=== PATIENT | female | born 1970 | race Caucasian/White ===

== ENCOUNTER 2021-01-22 12:23 | Inpatient (IN) ==
[2021-01-22] MEDS ORDERED: 0.9 % Sodium Chloride 1,000 ML IVC ONE ×2 (14:31→16:56)
[2021-01-22 14:53] LABS: Basophils % 0.3 %; Eosinophils # 0.3 K/mcL (0.0-0.6); Eosinophils % 2.3 %; Hematocrit 30.4 % (35.3-44.9); Hemoglobin 10.3 g/dL (11.5-15.4); Immature Granulocytes % 0.8 % (0-4); Lymphocytes # 1.4 K/mcL (0.6-4.6); Mean Corpuscular HGB Conc 33.9 g/dL (31.6-35.5); Mean Corpuscular Volume 94.4 fL (83.0-100.0); Mean Platelet Volume 9.5 fL (9.4-12.4); Monocytes # 0.6 K/mcL (0.0-1.3); Monocytes % 4.4 %; Neutrophils # 10.4 K/mcL (1.6-8.9); Platelet Count 296 K/mcL (140-400); Red Blood Count 3.22 M/mcL (3.82-4.97); Red Cell Distribution Width 12.8 % (11.5-14.5); Segmented Neutrophils % 81.2 %; White Blood Count 12.9 K/mcL (4.3-11.1)
[2021-01-22 15:13] LABS: BUN/Creatinine Ratio 24 (6-26); Blood Urea Nitrogen 19 mg/dL (6-20); Calcium 9.1 mg/dL (8.6-10.3); Carbon Dioxide 27 mEq/L (23-29); Chloride 106 mEq/L (98-107); Glucose 90 mg/dL (70-105); Osmolality,Calculated 290 (280-300); Potassium 3.5 mEq/L (3.5-5.1); Sodium 139 mEq/L (136-145); Troponin I < 0.03 ng/mL (< 0.04); eGFR For African Americans > 60 (> 60); eGFR For Non-African Americans > 60 (> 60)
[2021-01-22] MEDS ORDERED: Azithromycin 500 MG in 0.9 % Sodium Chloride 250 ML IVPB ONE (15:17)
[2021-01-22] MEDS ORDERED: cefTRIAXone 1,000 MG in 0.9 % Sodium Chloride Mini Bag 100 ML IVPB ONE (15:17)
[2021-01-22] MEDS ORDERED: Melatonin 3 MG TABLET PO PRN (15:32)
[2021-01-22] MEDS ORDERED: Ondansetron 4 MG/2 ML VIAL IVP PRN (15:32)
[2021-01-22] MEDS ORDERED: *HR* HYDROcodone/Acet 5/325 mg TABLET PO PRN (15:32)
[2021-01-22] MEDS ORDERED: Acetaminophen 325 MG TABLET PO PRN (15:32)
[2021-01-22] MEDS ORDERED: Naloxone 0.4 MG/ML INJ IVP PRN (15:32)
[2021-01-22] MEDS ORDERED: Ipratropium/Albuterol Neb 3 ML IH PRN (15:35)
[2021-01-22] MEDS ORDERED: Perflutren Lipid Microsphere 1.3 ML in 0.9 % Sodium Chloride 8.7 ML IVP PRN (15:35)
[2021-01-22 15:43] LABS: Bilirubin,Urine Negative (Negative); Blood,Urine Negative (Negative); Clarity,Urine Clear (Clear); Color,Urine Light-Yellow (Yellow); Glucose,Urine (UA) Normal (Normal); Ketones,Urine Negative (Negative); Leukocyte Esterase,Urine Negative (Negative); Nitrite,Urine Negative (Negative); PH,Urine 6.5 pH Units (5.0-8.0); Protein,Urine 30 mg/dL (Neg-Trace); RBC,Urine 0-3 per hpf (0-3); Specific Gravity,Urine 1.014 (1.010-1.025); Squamous Epithelial Cell,Urine Few per hpf (None-Few); Urobilinogen,Urine Normal (Normal); WBC,Urine 0-3 per hpf (0-3)
[2021-01-22] MEDS ORDERED: Chloraseptic Spray 177 ML BOTTLE MM PRN (16:36)
[2021-01-22 17:29] LABS: Prothrombin Time 11.8 Seconds (9.4-12.1)
[2021-01-22 17:32] LABS: Adenovirus Not Detected (Not Detect); Coronavirus 229E Not Detected (Not Detect); Coronavirus HKU1 Not Detected (Not Detect); Coronavirus NL63 Not Detected (Not Detect); Coronavirus OC43 Not Detected (Not Detect); Human Metapneumovirus Not Detected (Not Detect); Human Rhinovirus/Enterovirus Not Detected (Not Detect); Influenza A Subtype 2009 H1 Not Detected (Not Detect); SARS-CoV-2 Not Detected (Not Detect)
[2021-01-22 17:33] LABS: Bordetella Pertussis Not Detected (Not Detect); Chlamydophila pneumoniae Not Detected (Not Detect); Influenza B Not Detected (Not Detect); Mycoplasma pneumoniae Not Detected (Not Detect); Parainfluenza Virus 1 Not Detected (Not Detect); Parainfluenza Virus 2 Not Detected (Not Detect); Parainfluenza Virus 3 Not Detected (Not Detect); Parainfluenza Virus 4 Not Detected (Not Detect); Respiratory Syncytial Virus Not Detected (Not Detect)
[2021-01-22 17:37] LABS: Amphetamine Screen,Urine Negative ng/mL (Cutoff=1000); Barbiturate Screen,Urine Negative ng/mL (Cutoff=200); Benzodiazepines Screen,Urine Negative ng/mL (Cutoff=200); Cannabinoid Screen,Urine Negative ng/mL (Cutoff = 50); Cocaine Screen,Urine Negative ng/mL (Cutoff= 300); Opiate Screen,Urine Negative ng/mL (Cutoff=300); Phencyclidine Screen,Urine Negative ng/mL (Cutoff=25)
[2021-01-22 17:49] LABS: Acetaminophen < 10 mcg/mL (10-20); Ethanol < 10 mg/dL (Less than 10); Salicylate < 2.5 mg/dL (15.0-30.0); Troponin I 0.03 ng/mL (< 0.04)
[2021-01-22] MEDS ORDERED: Isovue-370 500 ML BOTTLE IVP ONE (20:46)
[2021-01-22] MEDS: Ringers Solution, Lactated 1,000 ML IVC SCH (20:58)
[2021-01-22] MEDS: Lactobacillus 1 EACH CAP.SPRINK PO SCH (20:58)
[2021-01-22] MEDS: Chlorhexidine Rinse 15 ML MOUTHWASH MM SCH (20:58)
[2021-01-22] MEDS: Ipratropium/Albuterol Neb 3 ML IH SCH (22:16)
[2021-01-22] MEDS: BuPROPion SR (12 HR) 100 MG TABLET PO SCH (22:47)
[2021-01-22] MEDS: Celecoxib 100 MG CAPSULE PO SCH (22:47)
[2021-01-22] MEDS: hydrOXYzine pamoate 25 MG CAPSULE PO SCH (22:48)
[2021-01-22] MEDS: clonazePAM 1 MG TABLET PO SCH (22:48)
[2021-01-23] MEDS: Acetaminophen 325 MG TABLET PO PRN ×2 (02:20→20:44)
[2021-01-23] MEDS: Ipratropium/Albuterol Neb 3 ML IH SCH ×4 (03:40→22:00)
[2021-01-23 05:04] LABS: Basophils % 0.2 %; Eosinophils # 0.3 K/mcL (0.0-0.6); Eosinophils % 2.3 %; Hematocrit 28.2 % (35.3-44.9); Hemoglobin 9.5 g/dL (11.5-15.4); Immature Granulocytes % 0.5 % (0-4); Lymphocytes # 1.5 K/mcL (0.6-4.6); Lymphocytes % 11.2 %; Mean Corpuscular HGB Conc 33.7 g/dL (31.6-35.5); Mean Corpuscular Hemoglobin 31.4 pg (28.0-33.3); Mean Corpuscular Volume 93.1 fL (83.0-100.0); Mean Platelet Volume 9.9 fL (9.4-12.4); Monocytes # 0.7 K/mcL (0.0-1.3); Monocytes % 5.1 %; Neutrophils # 10.6 K/mcL (1.6-8.9); Platelet Count 323 K/mcL (140-400); Red Blood Count 3.03 M/mcL (3.82-4.97); Segmented Neutrophils % 80.7 %; White Blood Count 13.1 K/mcL (4.3-11.1)
[2021-01-23 05:25] LABS: Alanine Aminotransferase 10 Units/L (7-52); Albumin 2.8 g/dL (3.5-5.7); Albumin/Globulin Ratio 1.1 (1.1-2.2); Alkaline Phosphatase 85 Units/L (34-104); Aspartate Amino Transferase 11 Units/L (13-39); BUN/Creatinine Ratio 18 (6-26); Bilirubin,Total 0.2 mg/dL (0.3-1.0); Blood Urea Nitrogen 14 mg/dL (6-20); Calcium 8.2 mg/dL (8.6-10.3); Carbon Dioxide 23 mEq/L (23-29); Chloride 110 mEq/L (98-107); Chol/HDL Ratio 4.9 (0-4.9); Cholesterol 137 mg/dL (< 200); Globulin 2.5 g/dL (2.4-3.5); Glucose 116 mg/dL (70-105); HDL Cholesterol 28 mg/dL (40-59); LDL Cholesterol,Calculated 81 mg/dL (< 100); Magnesium 1.5 mg/dL (1.6-2.6); Osmolality,Calculated 291 (280-300); Phosphorous 2.9 mg/dL (2.7-4.5); Potassium 3.6 mEq/L (3.5-5.1); Sodium 140 mEq/L (136-145); Total Protein 5.3 g/dL (6.4-8.9); Triglycerides 141 mg/dL (< 150); eGFR For African Americans > 60 (> 60); eGFR For Non-African Americans > 60 (> 60)
[2021-01-23 05:47] LABS: Folate 6.8 ng/mL (3.0-16.0)
[2021-01-23 05:58] LABS: Ferritin 210 ng/mL (10-120); Iron < 10 mcg/dL (50-170)
[2021-01-23] MEDS ORDERED: Iron Sucrose Complex 400 MG in 0.9 % Sodium Chloride 250 ML IVPB ONE (07:27)
[2021-01-23] MEDS: Lactobacillus 1 EACH CAP.SPRINK PO SCH ×2 (08:40→20:45)
[2021-01-23] MEDS: BuPROPion SR (12 HR) 100 MG TABLET PO SCH ×2 (08:41→20:44)
[2021-01-23] MEDS: clonazePAM 1 MG TABLET PO SCH ×3 (08:41→20:45)
[2021-01-23] MEDS: Celecoxib 100 MG CAPSULE PO SCH (08:41)
[2021-01-23] MEDS: hydrOXYzine pamoate 25 MG CAPSULE PO SCH ×2 (08:41→20:45)
[2021-01-23] MEDS: Chlorhexidine Rinse 15 ML MOUTHWASH MM SCH ×2 (08:41→20:46)
[2021-01-23] MEDS: Multivit/Ca/Min/Fe/FA 1 TAB TABLET PO SCH (08:41)
[2021-01-23] MEDS: Calcium Gluconate 1gm/50mL 1 GM/50 ML BAG IVPB SCH ×2 (08:46→10:15)
[2021-01-23] MEDS ORDERED: Multivit/Ca/Min/Fe/FA 1 TAB TABLET PO SCH (09:00)
[2021-01-23] MEDS ORDERED: Azithromycin 250 MG TABLET PO SCH (09:00)
[2021-01-23] MEDS: cefTRIAXone 1,000 MG in 0.9 % Sodium Chloride Mini Bag 100 ML IVPB SCH (09:06)
[2021-01-23] MEDS: Doxycycline 100 MG CAPSULE PO SCH ×2 (10:16→20:45)
[2021-01-23 12:11] LABS: Transferrin 168 mg/dL (203-362)
[2021-01-23] MEDS ORDERED: Ondansetron ODT 4 MG TAB.RAPDIS SL PRN (14:21)
[2021-01-23 16:21] LABS: Acinetobacter baumannii by PCR Not Detected (Not Detect); Candida albicans by PCR Not Detected (Not Detect); Candida glabrata by PCR Not Detected (Not Detect); Candida krusei by PCR Not Detected (Not Detect); Candida parapsilosis by PCR Not Detected (Not Detect); Candida tropicalis by PCR Not Detected (Not Detect); Enterobacter cloacae Cmplx PCR Not Detected (Not Detect); Enterobacteriaceae by PCR Not Detected (Not Detect); Enterococcus by PCR Not Detected (Not Detect); Escherichia coli by PCR Not Detected (Not Detect); Klebsiella oxytoca by PCR Not Detected (Not Detect); Klebsiella pneumoniae by PCR Not Detected (Not Detect); Proteus by PCR Not Detected (Not Detect); Pseudomonas aeruginosa by PCR Not Detected (Not Detect); Serratia marcescens by PCR Not Detected (Not Detect); Staphylococcus aureus by PCR DETECTED (Not Detect); Streptococcus agalactiae(B)PCR Not Detected (Not Detect); Streptococcus by PCR Not Detected (Not Detect); Streptococcus pneumoniae PCR Not Detected (Not Detect); Streptococcus pyogenes (A) PCR Not Detected (Not Detect); mecA Methicillin-Resist Gene DETECTED (Not Detect)
[2021-01-23] MEDS ORDERED: Vancomycin 1,500 MG/265 ML IV.SOLN IVPB SCH (17:00)
[2021-01-23] MEDS: *HR* Enoxaparin 40 MG/0.4 ML SYRINGE SQ SCH ×2 (18:21→18:35)
[2021-01-23] MEDS: lamoTRIgine 100 MG TABLET PO SCH (20:45)
[2021-01-23] MEDS: Ringers Solution, Lactated 1,000 ML IVC SCH (20:46)
[2021-01-23] MEDS ORDERED: Ketorolac 15 MG/ML VIAL IVP ONE (21:02)
[2021-01-24 03:25] LABS: Basophils % 0.3 %; Eosinophils # 0.4 K/mcL (0.0-0.6); Eosinophils % 3.9 %; Hematocrit 26.7 % (35.3-44.9); Hemoglobin 9.3 g/dL (11.5-15.4); Lymphocytes # 1.3 K/mcL (0.6-4.6); Lymphocytes % 12.3 %; Mean Corpuscular HGB Conc 34.8 g/dL (31.6-35.5); Mean Corpuscular Hemoglobin 32.2 pg (28.0-33.3); Mean Corpuscular Volume 92.4 fL (83.0-100.0); Mean Platelet Volume 9.5 fL (9.4-12.4); Monocytes # 0.6 K/mcL (0.0-1.3); Monocytes % 5.3 %; Neutrophils # 8.3 K/mcL (1.6-8.9); Platelet Count 332 K/mcL (140-400); Red Blood Count 2.89 M/mcL (3.82-4.97); Segmented Neutrophils % 77.2 %; White Blood Count 10.8 K/mcL (4.3-11.1)
[2021-01-24 03:43] LABS: Alanine Aminotransferase 12 Units/L (7-52); Albumin/Globulin Ratio 1.2 (1.1-2.2); Alkaline Phosphatase 88 Units/L (34-104); Aspartate Amino Transferase 13 Units/L (13-39); BUN/Creatinine Ratio 15 (6-26); Bilirubin,Total 0.3 mg/dL (0.3-1.0); Blood Urea Nitrogen 13 mg/dL (6-20); Calcium 8.5 mg/dL (8.6-10.3); Carbon Dioxide 28 mEq/L (23-29); Chloride 106 mEq/L (98-107); Globulin 2.5 g/dL (2.4-3.5); Glucose 93 mg/dL (70-105); Magnesium 1.9 mg/dL (1.6-2.6); Osmolality,Calculated 290 (280-300); Phosphorous 4.2 mg/dL (2.7-4.5); Potassium 3.3 mEq/L (3.5-5.1); Sodium 140 mEq/L (136-145); Total Protein 5.5 g/dL (6.4-8.9); eGFR For African Americans > 60 (> 60); eGFR For Non-African Americans > 60 (> 60)
[2021-01-24] MEDS: Ipratropium/Albuterol Neb 3 ML IH SCH ×4 (04:07→21:45)
[2021-01-24] MEDS: *HR* Enoxaparin 40 MG/0.4 ML SYRINGE SQ SCH (05:40)
[2021-01-24] MEDS: Chlorhexidine Rinse 15 ML MOUTHWASH MM SCH ×2 (07:58→21:28)
[2021-01-24] MEDS: BuPROPion SR (12 HR) 100 MG TABLET PO SCH ×2 (07:58→21:28)
[2021-01-24] MEDS: Cholecalciferol (D-3) 1,000 UNIT (25MCG) TABLET PO SCH (07:59)
[2021-01-24] MEDS: Lactobacillus 1 EACH CAP.SPRINK PO SCH ×2 (07:59→21:27)
[2021-01-24] MEDS: Doxycycline 100 MG CAPSULE PO SCH (07:59)
[2021-01-24] MEDS: Multivit/Ca/Min/Fe/FA 1 TAB TABLET PO SCH (07:59)
[2021-01-24] MEDS: cefTRIAXone 1,000 MG in 0.9 % Sodium Chloride Mini Bag 100 ML IVPB SCH (08:00)
[2021-01-24] MEDS: clonazePAM 1 MG TABLET PO SCH ×3 (08:04→21:28)
[2021-01-24] MEDS: hydrOXYzine pamoate 25 MG CAPSULE PO SCH ×2 (08:05→21:27)
[2021-01-24] MEDS: Fluticasone Propionate Nasal 50 MCG/SPRAY BOTTLE NS SCH (08:27)
[2021-01-24] MEDS: lamoTRIgine 100 MG TABLET PO SCH ×2 (08:28→21:26)
[2021-01-24] MEDS ORDERED: (Vortioxetine Hydrobromide [Trintellix] 10 MG Tablet) PO SCH (09:00)
[2021-01-24] MEDS: Calcium Gluconate 1gm/50mL 1 GM/50 ML BAG IVPB SCH ×2 (09:14→10:00)
[2021-01-24] MEDS: Acetaminophen 325 MG TABLET PO PRN (09:35)
[2021-01-24] MEDS: (Brexpiprazole [Rexulti] 0.5 MG Tablet) PO SCH (19:29)
[2021-01-25] MEDS: Acetaminophen 325 MG TABLET PO PRN (00:47)
[2021-01-25 02:40] LABS: Basophils # 0.1 K/mcL (0.0-0.2); Basophils % 0.4 %; Eosinophils # 0.3 K/mcL (0.0-0.6); Eosinophils % 2.8 %; Hematocrit 27.4 % (35.3-44.9); Hemoglobin 9.4 g/dL (11.5-15.4); Immature Granulocytes % 1.7 % (0-4); Lymphocytes # 1.2 K/mcL (0.6-4.6); Lymphocytes % 10.7 %; Mean Corpuscular HGB Conc 34.3 g/dL (31.6-35.5); Mean Corpuscular Hemoglobin 31.6 pg (28.0-33.3); Mean Corpuscular Volume 92.3 fL (83.0-100.0); Mean Platelet Volume 9.3 fL (9.4-12.4); Monocytes # 1.2 K/mcL (0.0-1.3); Monocytes % 10.1 %; Neutrophils # 8.6 K/mcL (1.6-8.9); Nucleated Red Blood Cells 0.3 /100 WBC (0); Platelet Count 344 K/mcL (140-400); Red Blood Count 2.97 M/mcL (3.82-4.97); Red Cell Distribution Width 13.2 % (11.5-14.5); Segmented Neutrophils % 74.3 %; White Blood Count 11.6 K/mcL (4.3-11.1)
[2021-01-25 03:02] LABS: Alanine Aminotransferase 13 Units/L (7-52); Albumin 3.1 g/dL (3.5-5.7); Albumin/Globulin Ratio 1.1 (1.1-2.2); Alkaline Phosphatase 87 Units/L (34-104); Aspartate Amino Transferase 13 Units/L (13-39); BUN/Creatinine Ratio 14 (6-26); Bilirubin,Total 0.3 mg/dL (0.3-1.0); Blood Urea Nitrogen 12 mg/dL (6-20); Calcium 8.7 mg/dL (8.6-10.3); Carbon Dioxide 27 mEq/L (23-29); Chloride 105 mEq/L (98-107); Globulin 2.7 g/dL (2.4-3.5); Glucose 108 mg/dL (70-105); Magnesium 1.6 mg/dL (1.6-2.6); Osmolality,Calculated 288 (280-300); Phosphorous 3.2 mg/dL (2.7-4.5); Sodium 139 mEq/L (136-145); Total Protein 5.8 g/dL (6.4-8.9); eGFR For African Americans > 60 (> 60); eGFR For Non-African Americans > 60 (> 60)
[2021-01-25] MEDS: Ipratropium/Albuterol Neb 3 ML IH SCH ×4 (03:49→22:24)
[2021-01-25] MEDS: *HR* Enoxaparin 40 MG/0.4 ML SYRINGE SQ SCH (05:43)
[2021-01-25] MEDS: Chlorhexidine Rinse 15 ML MOUTHWASH MM SCH ×2 (08:18→20:51)
[2021-01-25] MEDS: lamoTRIgine 100 MG TABLET PO SCH ×2 (08:19→20:51)
[2021-01-25] MEDS: clonazePAM 1 MG TABLET PO SCH ×3 (08:19→20:51)
[2021-01-25] MEDS: Cholecalciferol (D-3) 1,000 UNIT (25MCG) TABLET PO SCH (08:19)
[2021-01-25] MEDS: Multivit/Ca/Min/Fe/FA 1 TAB TABLET PO SCH (08:19)
[2021-01-25] MEDS: BuPROPion SR (12 HR) 100 MG TABLET PO SCH ×2 (08:20→20:51)
[2021-01-25] MEDS: hydrOXYzine pamoate 25 MG CAPSULE PO SCH ×2 (08:20→20:51)
[2021-01-25] MEDS: (Brexpiprazole [Rexulti] 0.5 MG Tablet) PO SCH (08:21)
[2021-01-25] MEDS: Lactobacillus 1 EACH CAP.SPRINK PO SCH ×2 (08:24→20:51)
[2021-01-25] MEDS: Fluticasone Propionate Nasal 50 MCG/SPRAY BOTTLE NS SCH (09:43)
[2021-01-25] MEDS: cefTRIAXone 1,000 MG in 0.9 % Sodium Chloride Mini Bag 100 ML IVPB SCH (12:39)
[2021-01-25] MEDS: TRINTELLIX 10 MG PO SCH (20:50)
[2021-01-26 02:37] LABS: Basophils # 0.1 K/mcL (0.0-0.2); Basophils % 0.7 %; Eosinophils # 0.5 K/mcL (0.0-0.6); Eosinophils % 4.9 %; Hematocrit 31.6 % (35.3-44.9); Hemoglobin 10.3 g/dL (11.5-15.4); Immature Granulocytes % 1.8 % (0-4); Lymphocytes # 1.9 K/mcL (0.6-4.6); Lymphocytes % 18.1 %; Mean Corpuscular HGB Conc 32.6 g/dL (31.6-35.5); Mean Corpuscular Volume 95.2 fL (83.0-100.0); Mean Platelet Volume 9.2 fL (9.4-12.4); Monocytes % 9.1 %; Nucleated Red Blood Cells 0.6 /100 WBC (0); Platelet Count 399 K/mcL (140-400); Red Blood Count 3.32 M/mcL (3.82-4.97); Red Cell Distribution Width 13.3 % (11.5-14.5); Segmented Neutrophils % 65.4 %; White Blood Count 10.7 K/mcL (4.3-11.1)
[2021-01-26 03:00] LABS: Alanine Aminotransferase 12 Units/L (7-52); Albumin 3.3 g/dL (3.5-5.7); Albumin/Globulin Ratio 1.2 (1.1-2.2); Alkaline Phosphatase 94 Units/L (34-104); Aspartate Amino Transferase 14 Units/L (13-39); BUN/Creatinine Ratio 15 (6-26); Bilirubin,Total 0.2 mg/dL (0.3-1.0); Blood Urea Nitrogen 13 mg/dL (6-20); Calcium 8.5 mg/dL (8.6-10.3); Carbon Dioxide 27 mEq/L (23-29); Chloride 105 mEq/L (98-107); Globulin 2.8 g/dL (2.4-3.5); Glucose 100 mg/dL (70-105); Magnesium 2.1 mg/dL (1.6-2.6); Osmolality,Calculated 290 (280-300); Phosphorous 3.6 mg/dL (2.7-4.5); Potassium 3.8 mEq/L (3.5-5.1); Sodium 140 mEq/L (136-145); Total Protein 6.1 g/dL (6.4-8.9); eGFR For African Americans > 60 (> 60); eGFR For Non-African Americans > 60 (> 60)
[2021-01-26] MEDS: Ipratropium/Albuterol Neb 3 ML IH SCH ×4 (04:13→23:09)
[2021-01-26] MEDS: *HR* Enoxaparin 40 MG/0.4 ML SYRINGE SQ SCH (05:53)
[2021-01-26] MEDS: Multivit/Ca/Min/Fe/FA 1 TAB TABLET PO SCH (09:25)
[2021-01-26] MEDS: BuPROPion SR (12 HR) 100 MG TABLET PO SCH ×2 (09:25→21:42)
[2021-01-26] MEDS: hydrOXYzine pamoate 25 MG CAPSULE PO SCH ×2 (09:26→21:42)
[2021-01-26] MEDS: Cholecalciferol (D-3) 1,000 UNIT (25MCG) TABLET PO SCH (09:26)
[2021-01-26] MEDS: Lactobacillus 1 EACH CAP.SPRINK PO SCH ×2 (09:26→21:41)
[2021-01-26] MEDS: lamoTRIgine 100 MG TABLET PO SCH ×2 (09:26→21:42)
[2021-01-26] MEDS: Chlorhexidine Rinse 15 ML MOUTHWASH MM SCH ×2 (09:27→21:41)
[2021-01-26] MEDS: cefTRIAXone 1,000 MG in 0.9 % Sodium Chloride Mini Bag 100 ML IVPB SCH (09:27)
[2021-01-26] MEDS: Fluticasone Propionate Nasal 50 MCG/SPRAY BOTTLE NS SCH (09:30)
[2021-01-26] MEDS: clonazePAM 1 MG TABLET PO SCH ×3 (09:30→21:41)
[2021-01-26] MEDS: (Brexpiprazole [Rexulti] 0.5 MG Tablet) PO SCH (09:30)
[2021-01-26] MEDS: Calcium Gluconate 1gm/50mL 1 GM/50 ML BAG IVPB SCH ×2 (10:28→11:07)
[2021-01-26] MEDS: Vancomycin 1,250 MG/262.5 ML IV.SOLN IVPB SCH (21:49)
[2021-01-26] MEDS: TRINTELLIX 10 MG PO SCH (22:23)
[2021-01-27] MEDS: Ipratropium/Albuterol Neb 3 ML IH SCH ×4 (03:52→22:27)
[2021-01-27] MEDS: *HR* Enoxaparin 40 MG/0.4 ML SYRINGE SQ SCH (04:50)
[2021-01-27 04:55] LABS: Basophils # 0.1 K/mcL (0.0-0.2); Basophils % 0.6 %; Eosinophils # 0.5 K/mcL (0.0-0.6); Eosinophils % 4.6 %; Hematocrit 31.1 % (35.3-44.9); Hemoglobin 9.9 g/dL (11.5-15.4); Lymphocytes % 17.7 %; Mean Corpuscular HGB Conc 31.8 g/dL (31.6-35.5); Mean Corpuscular Hemoglobin 30.7 pg (28.0-33.3); Mean Corpuscular Volume 96.3 fL (83.0-100.0); Mean Platelet Volume 9.3 fL (9.4-12.4); Monocytes # 0.7 K/mcL (0.0-1.3); Monocytes % 5.9 %; Neutrophils # 7.9 K/mcL (1.6-8.9); Nucleated Red Blood Cells 0.3 /100 WBC (0); Platelet Count 471 K/mcL (140-400); Red Blood Count 3.23 M/mcL (3.82-4.97); Red Cell Distribution Width 13.5 % (11.5-14.5); Segmented Neutrophils % 69.2 %; White Blood Count 11.5 K/mcL (4.3-11.1)
[2021-01-27 05:01] LABS: BUN/Creatinine Ratio 22 (6-26); Blood Urea Nitrogen 18 mg/dL (6-20); Calcium 8.7 mg/dL (8.6-10.3); Carbon Dioxide 30 mEq/L (23-29); Chloride 102 mEq/L (98-107); Glucose 96 mg/dL (70-105); Magnesium 2.1 mg/dL (1.6-2.6); Osmolality,Calculated 288 (280-300); Phosphorous 3.8 mg/dL (2.7-4.5); Potassium 4.3 mEq/L (3.5-5.1); Sodium 138 mEq/L (136-145); eGFR For African Americans > 60 (> 60); eGFR For Non-African Americans > 60 (> 60)
[2021-01-27] MEDS: Vancomycin 1,250 MG/262.5 ML IV.SOLN IVPB SCH ×2 (09:30→20:37)
[2021-01-27] MEDS: Fluticasone Propionate Nasal 50 MCG/SPRAY BOTTLE NS SCH (09:35)
[2021-01-27] MEDS: Lactobacillus 1 EACH CAP.SPRINK PO SCH ×2 (09:35→20:47)
[2021-01-27] MEDS: clonazePAM 1 MG TABLET PO SCH ×2 (09:35→20:47)
[2021-01-27] MEDS: hydrOXYzine pamoate 25 MG CAPSULE PO SCH ×2 (09:36→20:46)
[2021-01-27] MEDS: Multivit/Ca/Min/Fe/FA 1 TAB TABLET PO SCH (09:36)
[2021-01-27] MEDS: lamoTRIgine 100 MG TABLET PO SCH ×2 (09:36→20:50)
[2021-01-27] MEDS: Cholecalciferol (D-3) 1,000 UNIT (25MCG) TABLET PO SCH (09:36)
[2021-01-27] MEDS: BuPROPion SR (12 HR) 100 MG TABLET PO SCH ×2 (09:37→20:50)
[2021-01-27] MEDS: (Brexpiprazole [Rexulti] 0.5 MG Tablet) PO SCH (09:38)
[2021-01-27] MEDS: Chlorhexidine Rinse 15 ML MOUTHWASH MM SCH ×2 (10:08→20:50)
[2021-01-27] MEDS: Acetaminophen 325 MG TABLET PO PRN (10:14)
[2021-01-27 11:19] LABS: Mean Platelet Volume 9.2 fL (9.4-12.4)
[2021-01-27] MEDS ORDERED: Lidocaine -MPF 1% 5 ML AMPUL INFILT ONE (11:51)
[2021-01-27] MEDS: cefTRIAXone 1,000 MG in 0.9 % Sodium Chloride Mini Bag 100 ML IVPB SCH (12:19)
[2021-01-27] MEDS: TRINTELLIX 10 MG PO SCH (20:51)
[2021-01-28] MEDS ORDERED: Saline Nasal Spray 44 ML BOTTLE NS PRN (02:53)
[2021-01-28] MEDS: Ipratropium/Albuterol Neb 3 ML IH SCH ×4 (04:02→22:13)
[2021-01-28] MEDS: *HR* Enoxaparin 40 MG/0.4 ML SYRINGE SQ SCH (06:54)
[2021-01-28 08:44] LABS: BUN/Creatinine Ratio 16 (6-26); Blood Urea Nitrogen 15 mg/dL (6-20); Calcium 8.7 mg/dL (8.6-10.3); Carbon Dioxide 27 mEq/L (23-29); Chloride 105 mEq/L (98-107); Glucose 90 mg/dL (70-105); Osmolality,Calculated 290 (280-300); Phosphorous 3.4 mg/dL (2.7-4.5); Sodium 140 mEq/L (136-145); eGFR For African Americans > 60 (> 60); eGFR For Non-African Americans > 60 (> 60)
[2021-01-28] MEDS: hydrOXYzine pamoate 25 MG CAPSULE PO SCH ×2 (08:49→20:25)
[2021-01-28] MEDS: BuPROPion SR (12 HR) 100 MG TABLET PO SCH ×2 (08:49→20:24)
[2021-01-28] MEDS: Multivit/Ca/Min/Fe/FA 1 TAB TABLET PO SCH (08:49)
[2021-01-28] MEDS: Lactobacillus 1 EACH CAP.SPRINK PO SCH ×2 (08:49→20:24)
[2021-01-28] MEDS: lamoTRIgine 100 MG TABLET PO SCH ×2 (08:50→20:24)
[2021-01-28] MEDS: Cholecalciferol (D-3) 1,000 UNIT (25MCG) TABLET PO SCH (08:50)
[2021-01-28] MEDS: clonazePAM 1 MG TABLET PO SCH ×3 (08:50→20:24)
[2021-01-28] MEDS: Chlorhexidine Rinse 15 ML MOUTHWASH MM SCH ×2 (08:50→20:25)
[2021-01-28] MEDS: (Brexpiprazole [Rexulti] 0.5 MG Tablet) PO SCH (08:51)
[2021-01-28] MEDS: Vancomycin 1,250 MG/262.5 ML IV.SOLN IVPB SCH ×2 (09:52→20:25)
[2021-01-28 09:53] LABS: Basophils # 0.1 K/mcL (0.0-0.2); Basophils % 0.4 %; Eosinophils # 0.5 K/mcL (0.0-0.6); Eosinophils % 3.4 %; Hematocrit 30.9 % (35.3-44.9); Hemoglobin 10.3 g/dL (11.5-15.4); Immature Granulocytes % 1.4 % (0-4); Lymphocytes # 1.6 K/mcL (0.6-4.6); Lymphocytes % 11.3 %; Mean Corpuscular HGB Conc 33.3 g/dL (31.6-35.5); Mean Corpuscular Hemoglobin 31.6 pg (28.0-33.3); Mean Corpuscular Volume 94.8 fL (83.0-100.0); Mean Platelet Volume 9.4 fL (9.4-12.4); Monocytes # 0.6 K/mcL (0.0-1.3); Monocytes % 4.1 %; Neutrophils # 11.3 K/mcL (1.6-8.9); Platelet Count 552 K/mcL (140-400); Red Blood Count 3.26 M/mcL (3.82-4.97); Red Cell Distribution Width 13.4 % (11.5-14.5); Segmented Neutrophils % 79.4 %; White Blood Count 14.2 K/mcL (4.3-11.1)
[2021-01-28] MEDS: Fluticasone Propionate Nasal 50 MCG/SPRAY BOTTLE NS SCH (09:53)
[2021-01-28] MEDS ORDERED: *HR* FentaNYL (PF) 100 MCG/2 ML VIAL IVP PRN (13:14)
[2021-01-28] MEDS ORDERED: Lidocaine Viscous Oral Soln 15 ML SOLUTION MM PRN (13:14)
[2021-01-28] MEDS ORDERED: 0.9 % Sodium Chloride 500 ML IVC ONE (13:15)
[2021-01-28] MEDS ORDERED: *HR* Midazolam HCl 2 MG/2 ML VIAL IVP PRN (13:23)
[2021-01-28] MEDS ORDERED: *HR* Midazolam HCl 5 MG/5 ML VIAL IVP ONE ×2 (13:25→13:26)
[2021-01-28] MEDS: TRINTELLIX 10 MG PO SCH (20:26)
[2021-01-29 00:50] LABS: Basophils # 0.1 K/mcL (0.0-0.2); Basophils % 0.4 %; Eosinophils # 0.4 K/mcL (0.0-0.6); Eosinophils % 3.4 %; Hematocrit 29.9 % (35.3-44.9); Hemoglobin 9.6 g/dL (11.5-15.4); Immature Granulocytes % 1.7 % (0-4); Lymphocytes # 1.7 K/mcL (0.6-4.6); Lymphocytes % 14.8 %; Mean Corpuscular HGB Conc 32.1 g/dL (31.6-35.5); Mean Corpuscular Hemoglobin 31.1 pg (28.0-33.3); Mean Corpuscular Volume 96.8 fL (83.0-100.0); Mean Platelet Volume 8.8 fL (9.4-12.4); Monocytes # 0.5 K/mcL (0.0-1.3); Monocytes % 4.5 %; Neutrophils # 8.6 K/mcL (1.6-8.9); Platelet Count 538 K/mcL (140-400); Red Blood Count 3.09 M/mcL (3.82-4.97); Red Cell Distribution Width 13.7 % (11.5-14.5); Segmented Neutrophils % 75.2 %; White Blood Count 11.5 K/mcL (4.3-11.1)
[2021-01-29 01:06] LABS: BUN/Creatinine Ratio 19 (6-26); Blood Urea Nitrogen 18 mg/dL (6-20); Calcium 8.6 mg/dL (8.6-10.3); Carbon Dioxide 28 mEq/L (23-29); Chloride 105 mEq/L (98-107); Glucose 84 mg/dL (70-105); Magnesium 2.1 mg/dL (1.6-2.6); Osmolality,Calculated 289 (280-300); Phosphorous 3.1 mg/dL (2.7-4.5); Potassium 3.9 mEq/L (3.5-5.1); Sodium 139 mEq/L (136-145); eGFR For African Americans > 60 (> 60); eGFR For Non-African Americans > 60 (> 60)
[2021-01-29] MEDS: Ipratropium/Albuterol Neb 3 ML IH SCH ×2 (03:16→09:54)
[2021-01-29] MEDS: *HR* Enoxaparin 40 MG/0.4 ML SYRINGE SQ SCH (06:00)
[2021-01-29] MEDS: clonazePAM 1 MG TABLET PO SCH (10:03)
[2021-01-29] MEDS: Cholecalciferol (D-3) 1,000 UNIT (25MCG) TABLET PO SCH (10:03)
[2021-01-29] MEDS: Vancomycin 1,250 MG/262.5 ML IV.SOLN IVPB SCH (10:04)
[2021-01-29] MEDS: Multivit/Ca/Min/Fe/FA 1 TAB TABLET PO SCH (10:04)
[2021-01-29] MEDS: lamoTRIgine 100 MG TABLET PO SCH (10:04)
[2021-01-29] MEDS: Lactobacillus 1 EACH CAP.SPRINK PO SCH (10:04)
[2021-01-29] MEDS: BuPROPion SR (12 HR) 100 MG TABLET PO SCH (10:04)
[2021-01-29] MEDS: hydrOXYzine pamoate 25 MG CAPSULE PO SCH (10:04)
[2021-01-29] MEDS: Chlorhexidine Rinse 15 ML MOUTHWASH MM SCH (10:05)
[2021-01-29] MEDS: (Brexpiprazole [Rexulti] 0.5 MG Tablet) PO SCH (10:06)
[2021-01-29] MEDS: Fluticasone Propionate Nasal 50 MCG/SPRAY BOTTLE NS SCH (10:08)
[2021-02-01 00:51] VITALS: BP 99/62; PULSE 108; TEMP 98.2; O2SAT 95
== END 2021-01-29 14:15 | disposition home health service (06) | DRG 720 ==
LOC: SUATTDRO → EMEROOARM 12:23 → 2NENU 12:23 → SUATTDRO 16:53 → 2NENU 19:51
PROVIDERS: ADMIT Internal Medicine; ATTEND Internal Medicine

== ENCOUNTER 2021-02-04 10:29 | Observation (INO) ==
[2021-02-04] MEDS ORDERED: Ringers Solution, Lactated 1,000 ML IVC ONE (13:42)
[2021-02-04 13:44] LABS: Basophils % 0.4 %; Eosinophils % 0.2 %; Hematocrit 34.9 % (35.3-44.9); Hemoglobin 11.3 g/dL (11.5-15.4); Immature Granulocytes % 0.2 % (0-4); Lymphocytes # 0.9 K/mcL (0.6-4.6); Lymphocytes % 20.1 %; Mean Corpuscular HGB Conc 32.4 g/dL (31.6-35.5); Mean Corpuscular Hemoglobin 30.8 pg (28.0-33.3); Mean Corpuscular Volume 95.1 fL (83.0-100.0); Mean Platelet Volume 9.2 fL (9.4-12.4); Monocytes # 0.2 K/mcL (0.0-1.3); Monocytes % 4.2 %; Neutrophils # 3.4 K/mcL (1.6-8.9); Platelet Count 577 K/mcL (140-400); Red Blood Count 3.67 M/mcL (3.82-4.97); Red Cell Distribution Width 13.2 % (11.5-14.5); Segmented Neutrophils % 74.9 %; White Blood Count 4.6 K/mcL (4.3-11.1)
[2021-02-04 13:59] LABS: Alanine Aminotransferase 32 Units/L (7-52); Albumin 3.5 g/dL (3.5-5.7); Albumin/Globulin Ratio 1.1 (1.1-2.2); Alkaline Phosphatase 98 Units/L (34-104); Aspartate Amino Transferase 37 Units/L (13-39); BUN/Creatinine Ratio 18 (6-26); Bilirubin,Total 0.2 mg/dL (0.3-1.0); Blood Urea Nitrogen 16 mg/dL (6-20); Calcium 8.2 mg/dL (8.6-10.3); Carbon Dioxide 28 mEq/L (23-29); Chloride 101 mEq/L (98-107); Globulin 3.2 g/dL (2.4-3.5); Glucose 93 mg/dL (70-105); Osmolality,Calculated 281 (280-300); Potassium 4.5 mEq/L (3.5-5.1); Sodium 135 mEq/L (136-145); Total Protein 6.7 g/dL (6.4-8.9); Troponin I < 0.03 ng/mL (< 0.04); eGFR For African Americans > 60 (> 60); eGFR For Non-African Americans > 60 (> 60)
[2021-02-04] MEDS ORDERED: Ketorolac 15 MG/ML VIAL IVP ONE (14:49)
[2021-02-04 15:02] LABS: Adenovirus Not Detected (Not Detect); Bordetella Pertussis Not Detected (Not Detect); Chlamydophila pneumoniae Not Detected (Not Detect); Coronavirus 229E Not Detected (Not Detect); Coronavirus HKU1 Not Detected (Not Detect); Coronavirus NL63 Not Detected (Not Detect); Coronavirus OC43 Not Detected (Not Detect); Human Metapneumovirus Not Detected (Not Detect); Human Rhinovirus/Enterovirus Not Detected (Not Detect); Influenza A Subtype 2009 H1 Not Detected (Not Detect); Influenza B Not Detected (Not Detect); Mycoplasma pneumoniae Not Detected (Not Detect); Parainfluenza Virus 1 Not Detected (Not Detect); Parainfluenza Virus 2 Not Detected (Not Detect); Parainfluenza Virus 3 Not Detected (Not Detect); Parainfluenza Virus 4 Not Detected (Not Detect); Respiratory Syncytial Virus Not Detected (Not Detect)
[2021-02-04 15:03] LABS: SARS-CoV-2 DETECTED (Not Detect)
[2021-02-04] MEDS ORDERED: Naloxone 0.4 MG/ML INJ IVP PRN (16:08)
[2021-02-04] MEDS ORDERED: Ipratropium 1 PUFF INHALER IH PRN (16:33)
[2021-02-04] MEDS: hydrOXYzine pamoate 25 MG CAPSULE PO SCH (21:30)
[2021-02-04] MEDS: clonazePAM 1 MG TABLET PO SCH (21:31)
[2021-02-04] MEDS: lamoTRIgine 100 MG TABLET PO SCH (21:31)
[2021-02-04] MEDS: BuPROPion SR (12 HR) 100 MG TABLET PO SCH (21:33)
[2021-02-04] MEDS ORDERED: Albuterol 2.5 MG/3 ML NEBULIZER IH SCH (22:00)
[2021-02-05] MEDS ORDERED: *HR* LORazepam 2 MG/ML VIAL IVP PRN ×3 (03:45)
[2021-02-05] MEDS: *HR* Enoxaparin 40 MG/0.4 ML SYRINGE SQ SCH (04:14)
[2021-02-05 05:37] LABS: Prothrombin Time 11.8 Seconds (9.4-12.1)
[2021-02-05 05:38] LABS: BUN/Creatinine Ratio 21 (6-26); Blood Urea Nitrogen 16 mg/dL (6-20); Calcium 8.4 mg/dL (8.6-10.3); Carbon Dioxide 28 mEq/L (23-29); Chloride 104 mEq/L (98-107); Glucose 100 mg/dL (70-105); Osmolality,Calculated 287 (280-300); Potassium 4.3 mEq/L (3.5-5.1); Sodium 138 mEq/L (136-145); eGFR For African Americans > 60 (> 60); eGFR For Non-African Americans > 60 (> 60)
[2021-02-05 05:41] LABS: Basophils % 0.3 %; Hematocrit 34.4 % (35.3-44.9); Hemoglobin 11.3 g/dL (11.5-15.4); Immature Granulocytes % 0.3 % (0-4); Lymphocytes % 26.7 %; Mean Corpuscular HGB Conc 32.8 g/dL (31.6-35.5); Mean Corpuscular Hemoglobin 31.5 pg (28.0-33.3); Mean Corpuscular Volume 95.8 fL (83.0-100.0); Mean Platelet Volume 9.2 fL (9.4-12.4); Monocytes # 0.2 K/mcL (0.0-1.3); Neutrophils # 2.5 K/mcL (1.6-8.9); Platelet Count 565 K/mcL (140-400); Red Blood Count 3.59 M/mcL (3.82-4.97); Red Cell Distribution Width 13.2 % (11.5-14.5); Segmented Neutrophils % 67.7 %; White Blood Count 3.6 K/mcL (4.3-11.1)
[2021-02-05] MEDS: Vancomycin 1,250 MG/262.5 ML IV.SOLN IVPB SCH ×2 (06:10→17:02)
[2021-02-05] MEDS: clonazePAM 1 MG TABLET PO SCH ×3 (08:06→20:27)
[2021-02-05] MEDS: lamoTRIgine 100 MG TABLET PO SCH ×2 (08:06→20:27)
[2021-02-05] MEDS: hydrOXYzine pamoate 25 MG CAPSULE PO SCH ×2 (08:06→20:27)
[2021-02-05] MEDS: BuPROPion SR (12 HR) 100 MG TABLET PO SCH ×2 (08:06→20:27)
[2021-02-05] MEDS: Folic Acid 1 MG TABLET PO SCH (08:07)
[2021-02-05] MEDS: Thiamine (B-1) 100 MG TABLET PO SCH (08:07)
[2021-02-05] MEDS: BREXPIPRAZOLE 0.5 MG PO SCH (08:08)
[2021-02-05] MEDS: VORTIOXETINE HYDROBROMIDE 10 MG PO SCH (08:08)
[2021-02-05] MEDS: Fluticasone Propionate Nasal 50 MCG/SPRAY BOTTLE NS SCH (08:09)
[2021-02-05] MEDS ORDERED: Menthol 1 EACH LOZENGE PO PRN (12:22)
[2021-02-05] MEDS: Benzonatate 100 MG CAPSULE PO PRN ×2 (15:07→23:28)
[2021-02-05] MEDS ORDERED: Acetaminophen 325 MG TABLET PO PRN (23:35)
[2021-02-06] MEDS: *HR* Enoxaparin 40 MG/0.4 ML SYRINGE SQ SCH (04:02)
[2021-02-06] MEDS ORDERED: 0.9 % Sodium Chloride 1,000 ML IVC ONE (04:46)
[2021-02-06] MEDS: Vancomycin 1,250 MG/262.5 ML IV.SOLN IVPB SCH (04:53)
[2021-02-06 05:43] LABS: Basophils % 0.3 %; Hematocrit 33.8 % (35.3-44.9); Hemoglobin 10.5 g/dL (11.5-15.4); Immature Granulocytes % 0.3 % (0-4); Lymphocytes # 1.6 K/mcL (0.6-4.6); Lymphocytes % 23.6 %; Mean Corpuscular HGB Conc 31.1 g/dL (31.6-35.5); Mean Corpuscular Hemoglobin 30.2 pg (28.0-33.3); Mean Corpuscular Volume 97.1 fL (83.0-100.0); Mean Platelet Volume 9.4 fL (9.4-12.4); Monocytes # 0.3 K/mcL (0.0-1.3); Monocytes % 4.1 %; Neutrophils # 4.7 K/mcL (1.6-8.9); Platelet Count 571 K/mcL (140-400); Red Blood Count 3.48 M/mcL (3.82-4.97); Red Cell Distribution Width 13.4 % (11.5-14.5); Segmented Neutrophils % 71.7 %
[2021-02-06 05:44] LABS: White Blood Count 6.6 K/mcL (4.3-11.1)
[2021-02-06 06:04] LABS: BUN/Creatinine Ratio 20 (6-26); Blood Urea Nitrogen 22 mg/dL (6-20); Calcium 8.5 mg/dL (8.6-10.3); Carbon Dioxide 32 mEq/L (23-29); Chloride 103 mEq/L (98-107); Glucose 81 mg/dL (70-105); Osmolality,Calculated 294 (280-300); Potassium 3.8 mEq/L (3.5-5.1); Sodium 141 mEq/L (136-145); eGFR For African Americans > 60 (> 60); eGFR For Non-African Americans 54 (> 60)
[2021-02-06] MEDS: Folic Acid 1 MG TABLET PO SCH (07:47)
[2021-02-06] MEDS: lamoTRIgine 100 MG TABLET PO SCH (07:47)
[2021-02-06] MEDS: BuPROPion SR (12 HR) 100 MG TABLET PO SCH (07:47)
[2021-02-06] MEDS: Benzonatate 100 MG CAPSULE PO PRN (07:47)
[2021-02-06] MEDS: hydrOXYzine pamoate 25 MG CAPSULE PO SCH (07:47)
[2021-02-06] MEDS: Thiamine (B-1) 100 MG TABLET PO SCH (07:47)
[2021-02-06] MEDS: BREXPIPRAZOLE 0.5 MG PO SCH (07:48)
[2021-02-06] MEDS: VORTIOXETINE HYDROBROMIDE 10 MG PO SCH (07:48)
[2021-02-06] MEDS: Fluticasone Propionate Nasal 50 MCG/SPRAY BOTTLE NS SCH (07:49)
[2021-02-06] MEDS: clonazePAM 1 MG TABLET PO SCH ×2 (07:49→14:41)
[2021-02-06 11:44] VITALS: BP 99/65; PULSE 95; TEMP 98.5; O2SAT 94
== END 2021-02-06 20:00 | disposition home health service (06) ==
LOC: EMEROOARM 10:29 → 3BNU 10:29 → SUATTDRO 16:07 → 3BNU 17:12
PROVIDERS: ADMIT Internal Medicine; ATTEND Internal Medicine